=== PATIENT | female | born 1995 | race Caucasian/White ===

== ENCOUNTER 2016-11-12 19:33 | Inpatient (IN) | payer OTHER ==
[~2016-11-12] VITALS: Ht 160 cm; Wt 59.0 kg
[2016-11-12 20:45] LABS: HEMOGLOBIN 9.7 gm/dl (12.3-15.3); RED BLOOD COUNT 3.31 M/UL (4.00-5.10); WHITE BLOOD COUNT 10.8 K/UL (4.5-11.0)
[2016-11-12 20:58] LABS: BUN/CREATININE RATIO 18 (0-10)
[2016-11-13 20:46] LABS: URINE TOTAL PROTEIN 35 mg/dl
[2016-11-16 03:26] LABS: HEMOGLOBIN 9.7 gm/dl (12.3-15.3)
[2016-11-17] MEDS ORDERED: COLACE 100MG C100 MG PO (10:13)
== END 2016-11-17 11:35 | disposition home or self-care (01) | DRG 775 ==
LOC: GENOP 19:33 → OB 20:04
PROVIDERS: Obstetrics & Gynecology; ADMIT Obstetrics & Gynecology
PROC: 0HQ9XZZ Repair Perineum Skin, External Approach (ICD-10-PCS; principal; 2016-11-15)
PROC: 10E0XZZ Delivery of Products of Conception, External Approach (ICD-10-PCS; 2016-11-15)
PROC: 3E033VJ Introduction of Other Hormone into Peripheral Vein, Percutaneous Approach (ICD-10-PCS; 2016-11-15)
PROC: 10907ZC Drainage of Amniotic Fluid, Therapeutic from Products of Conception, Via Natural or Artificial Opening (ICD-10-PCS; 2016-11-15)
PROC: 3E0R3CZ (ICD-10-PCS; 2016-11-15)
DX: O14.14 Severe pre-eclampsia complicating childbirth (principal); Q61.2 Polycystic kidney, adult type; O60.14X0 Preterm labor third trimester with preterm delivery third trimester, not applicable or unspecified; O99.824 Streptococcus B carrier state complicating childbirth; O99.89 Other specified diseases and conditions complicating pregnancy, childbirth and the puerperium; Z3A.35 35 weeks gestation of pregnancy; Z37.0 Single live birth; O69.81X0 Labor and delivery complicated by cord around neck, without compression, not applicable or unspecified; O70.0 First degree perineal laceration during delivery; O99.513 Diseases of the respiratory system complicating pregnancy, third trimester; J45.909 Unspecified asthma, uncomplicated; Z87.891 Personal history of nicotine dependence; Z87.440 Personal history of urinary (tract) infections; Z87.798 Personal history of other (corrected) congenital malformations; Z90.49 Acquired absence of other specified parts of digestive tract; Z98.890 Other specified postprocedural states; Z83.49 Family history of other endocrine, nutritional and metabolic diseases; Z83.3 Family history of diabetes mellitus; Z82.49 Family history of ischemic heart disease and other diseases of the circulatory system; Z82.0 Family history of epilepsy and other diseases of the nervous system; Z82.79 Family history of other congenital malformations, deformations and chromosomal abnormalities; Z80.9 Family history of malignant neoplasm, unspecified
CPT/HCPCS: 36415; 51702; 80053; 81001; 82800; 82962; 83615; 83735; 84156; 84550; 85014; 85018; 85025; 96374; G0378; J0610; J2405; J2590; J2795; J3010; J3430; J7120